=== PATIENT | female | born 1985 | race Caucasian/White ===

== ENCOUNTER → 2017-10-01 | Outpatient (CLI) | payer OTHER ==
[~2017-10-01] MED LIST: IOPAMIDOL 300 MG/ML 15ML VIAL IT ONE
--- NOTE | 2017-10-01 09:55 | Diagnostic Imaging Report ---
PROCEDURE:X-RAY HYSEROSALPINGOGRAM COMPARISON:None. INDICATIONS: Infertility TECHNIQUE: Informed consent was obtained. A sterile vaginal speculum was introduced and, following cleansing of the cervix with Betadine, a five [place] HSG balloon-tipped catheter was inserted into the endometrial cavity. 10 cc of Isovue M300 was injected and multiple images in the frontal and bilateral oblique projections were obtained. Fluoroscopy time: 1.0 minutes. FINDINGS: FALLOPIAN TUBES: Normal, patent bilaterally. There is prompt bilateral free spillage of contrast. ENDOMETRIAL CAVITY: Normal. No filling defect. CONCLUSION: No acute radiographic abnormality. Normal hysterosalpingogram. Dictated by: John James M.D. on 10/01/2017 at 9:57 Electronically approved by: John James M.D. on 10/01/2017 at 9:57
--- NOTE | 2017-10-01 09:55 | Diagnostic Imaging Report ---
PROCEDURE:X-RAY HYSEROSALPINGOGRAM COMPARISON:None. INDICATIONS: Infertility TECHNIQUE: Informed consent was obtained. A sterile vaginal speculum was introduced and, following cleansing of the cervix with Betadine, a five [place] HSG balloon-tipped catheter was inserted into the endometrial cavity. 10 cc of Isovue M300 was injected and multiple images in the frontal and bilateral oblique projections were obtained. Fluoroscopy time: 1.0 minutes. FINDINGS: FALLOPIAN TUBES: Normal, patent bilaterally. There is prompt bilateral free spillage of contrast. ENDOMETRIAL CAVITY: Normal. No filling defect. CONCLUSION: No acute radiographic abnormality. Normal hysterosalpingogram. Dictated by: John James M.D. on 10/01/2017 at 9:57 Electronically approved by: John James M.D. on 10/01/2017 at 9:57
== END ==
LOC: DX 07:36
PROVIDERS: ATTEND Obstetrics & Gynecology
DX: N97.9 Female infertility, unspecified (principal)
CPT/HCPCS: 58340; 74740; 81025; Q9967